=== PATIENT | female | born 1950 | race Caucasian/White ===

== ENCOUNTER 2016-10-26 10:01 | Inpatient (IN) | payer BC, MEDICARE ==
[~2016-10-26] VITALS: Ht 185.4 cm; Wt 82.2 kg
[~2016-10-26 10:01] MED LIST: CYCL1TAB18 PO; DICL-176 PO; PROP60CA8 PO; SUMA6KIT; TRAM50TA2 PO
[2016-10-26 10:25] LABS: Basophils # (auto) 0 uL; Basophils % (auto) 0.3 % (0.0-2.0); CONDITION Y; Eosinophils # (auto) 0 uL; Hematocrit 44.2 % (36.0-46.0); Lymphocytes # (auto) 0.8 uL; Lymphocytes % (auto) 10.3 % (10.0-50.0); Mean Corpuscular Hemoglobin 29.2 pg (28.0-32.0); Mean Corpuscular Hgb Conc. 33.9 g/dL (32.0-36.0); Mean Platelet Volume 9.8 fL (7.4-10.4); Monocytes # (auto) 0.3 uL; Monocytes % (auto) 3.5 % (0.0-12.0); Neutrophils # (auto) 7.1 uL; Neutrophils % (auto) 85.9 % (37.0-80.0); Platelet Count (auto) 277 10^3/uL (140-450); Red Cell Distribution Width 13.6 % (11.6-16.0); White Blood Cell 8.2 10^3/uL (4.4-10.8)
[2016-10-26] MEDS ORDERED: PANTOPRAZOLE SODIUM 40 MG/10 ML VIAL IV STA (10:51)
[2016-10-26] MEDS ORDERED: SODIUM CHLORIDE 0.9% 500 ML IVB ONE (10:51)
[2016-10-26] MEDS ORDERED: MORPHINE SULFATE 4 MG/ML SYRG IV ONE (11:00)
[2016-10-26] MEDS ORDERED: ONDANSETRON HCL 4 MG/2 ML VIAL IV ONE (11:00)
[2016-10-26 11:04] LABS: Albumin 4.1 g/dL (3.4-5.0); Alkaline Phosphatase 58 U/L (45-117); Amylase 123 U/L (25-115); Anion Gap 12 (5-15); Aspartate Aminotransferase 19 U/L (15-37); BUN/Creatinine Ratio 23.5; Bilirubin, Total 2.5 mg/dL (0.2-1.0); Blood Urea Nitrogen 24 mg/dL (7-18); Calcium 9.7 mg/dL (8.5-10.1); Carbon Dioxide 24 mmol/L (21-32); Chloride 103 mmol/L (98-107); GFR African American 70 mL/min; GFR Non-African American 58 mL/min; Glucose 144 mg/dL (74-106); Magnesium 2.3 mg/dL (1.6-2.6); Potassium 4.2 mmol/L (3.5-5.1); Sodium 139 mmol/L (136-145); Total Protein 7.5 g/dL (6.4-8.2)
[2016-10-26] MEDS ORDERED: PANTOPRAZOLE SODIUM 40 MG/10 ML VIAL IV ONE ×2 (14:45→15:00)
[2016-10-26] MEDS ORDERED: SODIUM CHLORIDE 0.9% 1,000 ML IV ONE (14:45)
[2016-10-26] MEDS: PANTOPRAZOLE SODIUM 40 MG/10 ML VIAL IV SCH (15:16)
[2016-10-26] MEDS: MORPHINE SULF INJ 2 MG/ML SYRINGE 1ML IV PRN (15:16)
[2016-10-26 17:10] VITALS: BP 144/77
[2016-10-26 17:56] LABS: Urine Bilirubin Negative (Negative); Urine Blood TRACE /uL (Negative); Urine Color Yellow (Yellow); Urine Glucose Normal (Normal); Urine Hyaline Cast FEW /lpf (0 - 2); Urine Ketone 4+ (Negative); Urine Mucus FEW (None Seen); Urine Nitrite Negative (Negative); Urine RBC 5 /hpf (0 - 4); Urine Squamous Epithelial Cell FEW /hpf (<5)
[2016-10-26] MEDS: ONDANSETRON HCL 4 MG/2 ML VIAL IV PRN (18:55)
[2016-10-26 20:00] VITALS: BP 148/75
[2016-10-26 21:30] VITALS: BP 148/75
[2016-10-27] MEDS: ONDANSETRON HCL 4 MG/2 ML VIAL IV PRN (00:27)
[2016-10-27] MEDS: MORPHINE SULF INJ 2 MG/ML SYRINGE 1ML IV PRN ×2 (00:27→05:54)
[2016-10-27 05:00] VITALS: BP 131/93
[2016-10-27] MEDS: PROMETHAZINE HCL 25 MG/ML 1ML IV PRN ×2 (05:54→13:19)
[2016-10-27 06:43] LABS: Amylase 67 U/L (25-115)
[2016-10-27 08:00] VITALS: BP 143/80
[2016-10-27 08:42] VITALS: BP 143/80
[2016-10-27] MEDS: PANTOPRAZOLE SODIUM 40 MG/10 ML VIAL IV SCH (09:43)
[2016-10-27 13:01] VITALS: BP 143/84
[2016-10-27 17:03] VITALS: BP 144/73
[2016-10-27 22:00] VITALS: BP 144/80
[2016-10-28 05:00] VITALS: BP 144/83
[2016-10-28 08:00] VITALS: BP 137/71
[2016-10-28] MEDS ORDERED: ASPITAB34 PO (08:19)
[2016-10-28 09:00] VITALS: BP 137/71
[2016-10-28] MEDS: EXCEDRIN PO PRN ×2 (10:11→22:17)
[2016-10-28] MEDS: PANTOPRAZOLE SODIUM 40 MG/10 ML VIAL IV SCH (10:11)
[2016-10-28 13:00] VITALS: BP 161/95
[2016-10-28 17:00] VITALS: BP 102/55
[2016-10-28] MEDS: SODIUM CHLORIDE 0.9% 1,000 ML IV SCH (17:19)
[2016-10-28] MEDS: DEXAMETHASONE SOD PHOS 10MG/1ML VIAL INJ IV SCH (18:43)
[2016-10-28 22:00] VITALS: BP 102/87
[2016-10-28] MEDS: METOCLOPRAMIDE HCL 10 MG TAB PO SCH (22:17)
[2016-10-29] VITALS (7 sets, daily range): BP systolic 110–137; BP diastolic 76–90
[2016-10-29] MEDS: SODIUM CHLORIDE 0.9% 1,000 ML IV SCH ×3 (01:30→22:01)
[2016-10-29] MEDS: METOCLOPRAMIDE HCL 10 MG TAB PO SCH ×3 (06:26→22:02)
[2016-10-29] MEDS: DEXAMETHASONE SOD PHOS 10MG/1ML VIAL INJ IV SCH (09:29)
[2016-10-29] MEDS: PANTOPRAZOLE SODIUM 40 MG/10 ML VIAL IV SCH (09:29)
[2016-10-29 10:13] LABS: Albumin 3.1 g/dL (3.4-5.0); Bilirubin, Total 1.4 mg/dL (0.2-1.0); Calcium 8.4 mg/dL (8.5-10.1); Potassium 3.6 mmol/L (3.5-5.1); Total Protein 5.7 g/dL (6.4-8.2)
[2016-10-30 04:58] VITALS: BP 121/79
[2016-10-30] MEDS: METOCLOPRAMIDE HCL 10 MG TAB PO SCH (06:00)
[2016-10-30 06:22] LABS: Basophils # (auto) 0 uL; Basophils % (auto) 0.3 % (0.0-2.0); CONDITION Y; Eosinophils # (auto) 0 uL; Eosinophils % (auto) 0.4 % (0.0-7.0); Hematocrit 35.9 % (36.0-46.0); Lymphocytes # (auto) 1.5 uL; Lymphocytes % (auto) 22.9 % (10.0-50.0); Mean Corpuscular Hemoglobin 29.4 pg (28.0-32.0); Mean Corpuscular Hgb Conc. 33.3 g/dL (32.0-36.0); Mean Corpuscular Volume 88.1 fL (80.0-100.0); Mean Platelet Volume 10.2 fL (7.4-10.4); Monocytes # (auto) 0.5 uL; Monocytes % (auto) 8.2 % (0.0-12.0); Neutrophils # (auto) 4.4 uL; Neutrophils % (auto) 68.2 % (37.0-80.0); Platelet Count (auto) 193 10^3/uL (140-450); Red Cell Distribution Width 13.5 % (11.6-16.0); White Blood Cell 6.4 10^3/uL (4.4-10.8)
[2016-10-30 08:00] VITALS: BP 117/73
[2016-10-30] MEDS: SODIUM CHLORIDE 0.9% 1,000 ML IV SCH (08:53)
[2016-10-30 08:57] VITALS: BP 117/73
[2016-10-30] MEDS: DEXAMETHASONE SOD PHOS 10MG/1ML VIAL INJ IV SCH (09:32)
[2016-10-30] MEDS ORDERED: PANTOPRAZOLE 40 MG TAB PO SCH (10:00)
[2016-10-30 12:54] VITALS: BP 117/73
== END 2016-10-30 13:35 | disposition home or self-care (01) | DRG 440 ==
LOC: EDBD 10:01 → ER 10:04 → TELE 10:05 → CENTRAL 17:28
PROVIDERS: ADMIT Internal Medicine; ATTEND Internal Medicine
DX: K85.90 Acute pancreatitis without necrosis or infection, unspecified (principal); G43.909 Migraine, unspecified, not intractable, without status migrainosus; E86.0 Dehydration; G43.109 Migraine with aura, not intractable, without status migrainosus; R73.9 Hyperglycemia, unspecified; G43.B0 Ophthalmoplegic migraine, not intractable; H53.2 Diplopia; K21.9 Gastro-esophageal reflux disease without esophagitis; I70.0 Atherosclerosis of aorta; K57.30 Diverticulosis of large intestine without perforation or abscess without bleeding; Z80.3 Family history of malignant neoplasm of breast; Z82.3 Family history of stroke; Z82.5 Family history of asthma and other chronic lower respiratory diseases; Z88.0 Allergy status to penicillin; Z88.5 Allergy status to narcotic agent; Z90.89 Acquired absence of other organs; Z80.9 Family history of malignant neoplasm, unspecified
CPT/HCPCS: 36415; 74176; 76705; 80053; 80061; 81001; 82150; 83690; 83735; 84484; 85025; 93005; 94761; 96361; 96374; 96375; C9113; J1100; J2405

== ENCOUNTER 2017-11-23 13:56 | Inpatient (IN) | payer MEDICARE, OTHER ==
[~2017-11-23] VITALS: Ht 185.4 cm; Wt 73.5 kg
[2017-11-23] MEDS: POTASSIUM CHL 20MEQ/100ML 100 ML IV SCH ×2 (14:20→17:45)
[2017-11-23 14:26] LABS: Basophils # (auto) 0.1 uL; Basophils % (auto) 0.9 % (0.0-2.0); Eosinophils # (auto) 0 uL; Eosinophils % (auto) 0.3 % (0.0-7.0); Hematocrit 46.3 % (36.0-46.0); Hemoglobin 15.9 g/dL (12.2-16.2); Lymphocytes # (auto) 1.9 uL; Lymphocytes % (auto) 21.1 % (10.0-50.0); Mean Corpuscular Hemoglobin 29.7 pg (28.0-32.0); Mean Corpuscular Hgb Conc. 34.4 g/dL (32.0-36.0); Mean Corpuscular Volume 86.2 fL (80.0-100.0); Monocytes # (auto) 0.9 uL; Monocytes % (auto) 10.6 % (0.0-12.0); Neutrophils # (auto) 5.9 uL; Neutrophils % (auto) 67.1 % (37.0-80.0); Nucleated Red Blood Cells % 0.1 %; Platelet Count (auto) 287 10^3/uL (140-450); Red Blood Cells 5.37 10^6/uL (4.0-5.20); Red Cell Distribution Width 12.9 % (11.8-14.3); White Blood Cell 8.9 10^3/uL (4.4-10.8)
[2017-11-23] MEDS ORDERED: SODIUM CHLORIDE 0.9% 1,000 ML IVB ONE (14:37)
[2017-11-23] MEDS ORDERED: PANTOPRAZOLE 40 MG/10 ML VIAL IV STA (14:37)
[2017-11-23] MEDS ORDERED: MORPHINE SULFATE 4 MG/ML SYR/VIAL IV ONE (14:45)
[2017-11-23] MEDS ORDERED: PROCHLORPERAZINE EDISYLATE 5 MG/ML 2ML VIAL IV ONE (14:45)
[2017-11-23 14:48] LABS: Albumin 4.4 g/dL (3.4-5.0); BUN/Creatinine Ratio 22.1; Bilirubin, Total 2.8 mg/dL (0.2-1.0); Calcium 9.5 mg/dL (8.5-10.1); Total Protein 7.9 g/dL (6.4-8.2)
[2017-11-23 14:50] LABS: Potassium 2.9 mmol/L (3.5-5.1)
[2017-11-23 15:01] LABS: Urine Bacteria NONE SEEN /hpf (None Seen); Urine Blood Negative /uL (Negative); Urine Hyaline Cast MOD /lpf (0 - 2); Urine Mucus FEW (None Seen); Urine Specific Gravity 1.029 (1.001-1.035); Urine WBC 3 /hpf (0 - 5)
[2017-11-23] MEDS ORDERED: POTASSIUM CHL 20MEQ/100ML 100 ML IV ONE (15:15)
[2017-11-23] MEDS ORDERED: LEVOFLOXACIN 500MG 100 ML IV ONE (17:15)
[2017-11-23] MEDS ORDERED: SUMAtriptan SUCCINATE 6 MG/0.5 ML VL SC ONE (17:45)
[2017-11-23] MEDS: SOD CHL 0.9%/ KCL 40MEQ 1,000 ML IV SCH (17:45)
[2017-11-23] MEDS ORDERED: PANTOPRAZOLE 40 MG/10 ML VIAL IV ONE (17:45)
[2017-11-23] MEDS ORDERED: MORPHINE SULF INJ 2 MG/ML SYRINGE 1ML IV PRN (17:45)
[2017-11-23] MEDS ORDERED: HYDROcodone-ACET 5/325MG TAB PO PRN (17:45)
[2017-11-23] MEDS ORDERED: LORazepam 2MG/ML-1ML VIAL IV PRN (17:45)
[2017-11-23] MEDS ORDERED: PROMETHAZINE HCL 25 MG/ML 1ML IV PRN (17:45)
[2017-11-23] MEDS: TOPIRAMATE 25 MG TAB PO SCH (21:36)
[2017-11-23] MEDS: PROPRANOLOL HCL 20 MG TAB PO SCH (21:36)
[2017-11-23 21:56] VITALS: BP 135/80
[2017-11-23] MEDS ORDERED: TRAM-297 PO (22:17)
[2017-11-23] MEDS ORDERED: DICL-176 PO (22:17)
[2017-11-23] MEDS ORDERED: PROP40TA59 PO (22:17)
[2017-11-23] MEDS ORDERED: CYCL1TAB18 PO (22:17)
[2017-11-23] MEDS ORDERED: TOPI25TA32 PO (22:17)
[2017-11-23] MEDS ORDERED: ONDA4TAB5 PO (22:17)
[2017-11-23] MEDS ORDERED: SUMA100T15 PO (22:17)
[2017-11-23] MEDS ORDERED: PANT40TA2 PO (22:17)
[2017-11-24] MEDS: SOD CHL 0.9%/ KCL 40MEQ 1,000 ML IV SCH ×2 (03:45→14:06)
[2017-11-24 05:03] VITALS: BP 130/78
[2017-11-24 07:28] LABS: BUN/Creatinine Ratio 16.9; Calcium 8.1 mg/dL (8.5-10.1); Magnesium 2.5 mg/dL (1.6-2.6); Potassium 3.8 mmol/L (3.5-5.1)
[2017-11-24 09:00] VITALS: BP 122/58
[2017-11-24] MEDS: TOPIRAMATE 25 MG TAB PO SCH (09:18)
[2017-11-24] MEDS: PROPRANOLOL HCL 20 MG TAB PO SCH (09:19)
[2017-11-24] MEDS ORDERED: PANTOPRAZOLE 40 MG/10 ML VIAL IV SCH (10:00)
[2017-11-24 12:45] VITALS: BP 111/70
[2017-11-24 17:28] VITALS: BP 110/61
== END 2017-11-24 18:44 | disposition home or self-care (01) | DRG 103 ==
LOC: ER 13:56 → OVERFLOW 13:57 → EAST 19:55 → TELE-EAST 20:00 → EAST 23:32
PROVIDERS: ADMIT Internal Medicine; ATTEND Internal Medicine
DX: G43.909 Migraine, unspecified, not intractable, without status migrainosus (principal); E86.0 Dehydration; E87.6 Hypokalemia; Z82.49 Family history of ischemic heart disease and other diseases of the circulatory system; Z83.3 Family history of diabetes mellitus; Z88.6 Allergy status to analgesic agent; Z88.0 Allergy status to penicillin; Z87.19 Personal history of other diseases of the digestive system; Z91.018 Allergy to other foods
CPT/HCPCS: 36415; 80048; 80053; 81001; 82150; 83690; 83735; 85025; 93005; 94761; 96361; 96365; 96367; 96375; C9113; J1956; J3480

== ENCOUNTER 2018-11-18 18:47 | Inpatient (IN) | payer MEDICARE, OTHER | END 2018-11-19 16:33 | disposition home or self-care (01) | LOC: ER 18:47 → OVERFLOW 11-19 04:46 → WEST WING 11-19 05:47 ==

== ENCOUNTER 2021-12-29 09:52 | Emergency (ER) | payer MEDICARE, OTHER ==
[~2021-12-29] VITALS: Ht 182.9 cm; Wt 73.0 kg
[~2021-12-29 09:52] MED LIST changes: +CYCL-839 PO; -CYCL1TAB18 PO; -DICL-176 PO; +DICL75TA3 PO; +ONDA-144 PO; +PANT40TA2 PO; +PROP40TA59 PO; -PROP60CA8 PO; +SUMA100T15 PO; -SUMA6KIT; +TOPI25TA43 PO; +TRAM-297 PO; -TRAM50TA2 PO
[2021-12-29 10:56] LABS: Basophils # (auto) 0 10 ^3/uL (0-0.2); Basophils % (auto) 0.5 % (0.0-2.0); Eosinophils # (auto) 0 10 ^3/uL (0-0.8); Eosinophils % (auto) 0.1 % (0.0-7.0); Hematocrit 46.9 % (36.0-46.0); Hemoglobin 15.4 g/dL (12.2-16.2); Lymphocytes # (auto) 0.9 10 ^3/uL (0.4-5.4); Lymphocytes % (auto) 10.7 % (10.0-50.0); Mean Corpuscular Hgb Conc. 32.7 g/dL (32.0-36.0); Mean Corpuscular Volume 85.6 fL (80.0-100.0); Monocytes # (auto) 0.4 10 ^3/uL (0-1.3); Monocytes % (auto) 4.7 % (0.0-12.0); Neutrophils # (auto) 7.2 10 ^3/uL (1.6-8.6); Red Blood Cells 5.48 10^6/uL (4.0-5.20); Red Cell Distribution Width 13.3 % (11.8-14.3); White Blood Cell 8.6 10^3/uL (4.4-10.8)
[2021-12-29 11:21] LABS: Albumin 4.1 g/dL (3.4-5.0); Calcium 10.1 mg/dL (8.5-10.1); Potassium 3.4 mmol/L (3.5-5.1)
[2021-12-29 11:25] LABS: BUN/Creatinine Ratio 18.4; Bilirubin, Total 1.4 mg/dL (0.2-1.0); Total Protein 7.9 g/dL (6.4-8.2)
[2021-12-29] MEDS ORDERED: HYDROmorphone HCL 2 MG/ML VL/or syr IM ONE (12:30)
[2021-12-29] MEDS ORDERED: ONDANSETRON HCL 4 MG/2 ML VIAL IM ONE (12:45)
[2021-12-29] MEDS ORDERED: MORPHINE SULFATE 4 MG/ML SYR/VIAL IM ONE (12:45)
[2021-12-29 14:03] LABS: Urine Bacteria NONE SEEN /hpf (None Seen); Urine Blood TRACE /uL (Negative); Urine Mucus FEW (None Seen); Urine Specific Gravity 1.025 (1.001-1.035); Urine WBC 34 /hpf (0 - 5)
[2021-12-29] MEDS ORDERED: NITR-87 PO (16:13)
[2021-12-29 16:40] VITALS: BP 155/83
== END 2021-12-29 16:47 | disposition home or self-care (01) ==
LOC: ER 09:52
DX: G43.909 Migraine, unspecified, not intractable, without status migrainosus (principal); N39.0 Urinary tract infection, site not specified; Z90.89 Acquired absence of other organs; Z20.822 Contact with and (suspected) exposure to COVID-19
CPT/HCPCS: 36415; 70450; 71045; 80053; 81001; 85025; 87426; 93005; 96372; 99285; J1170; J2270; J2405